=== PATIENT | female | born 1975 | race Caucasian/White ===

== ENCOUNTER → 2017-01-18 | Outpatient (CLI) | payer OTHER | LOC: MW.LAB 08:50 | PROVIDERS: ATTEND Obstetrics & Gynecology | DX: Z13.89 Encounter for screening for other disorder (principal) | CPT/HCPCS: 36415; 87340 ==

== ENCOUNTER → 2017-01-27 | Outpatient (CLI) | payer OTHER ==
[~2017-01-27] MED LIST: Iopamidol 612 MG/ML 30 ML SDV IUTERINE STA
--- NOTE | 2017-01-27 11:21 | CR ---
EXAMINATION: Hysterosalpingogram. HISTORY: Infertility. Evaluate for tubal patency. PROCEDURE/FINDINGS: Written informed consent was obtained from the patient. Perineum was prepped wit h Betadine and after placement of vaginal speculum, the cervix was prepped with Betadine. The cervi mounika os is difficult to identify, due to abnormal appearance of the cervix. A 5 Kyrgyz catheter was p laced and after inflation of the balloon, 18 cc of contrast was injected until cornual regions are f illed and multiple views of the pelvis are obtained. The uterine cavity is normal in configuration. No suspicious filling defects are seen. The left lobe and tube is patent and demonstrates free spillage. The right fallopian tube is identif ied to at least the infundibulum. Definite spillage from the right fallopian tube is not identified, however contrast more easily passed to the left is side. IMPRESSION: 1. Patent left fallopian tube. 2. The right fallopian tube is patent to at least the infundibulum. 3. The cervical os was difficult to identify due to an irregular appearance of the cervix. Correlate clinically.
--- NOTE | 2017-01-27 14:45 | MY ---
EXAMINATION: Bilateral digital mammography utilizing CAD. HISTORY: Screening exam. Baseline. FINDINGS: Bilateral heterogeneously dense breast tissue. No suspicious calcifications, masses or a rchitectural distortions. No pathologic appearing lymph nodes, no abnormal skin thickening or nipp le inversion. CAD highlighted regions appear normal at this time. IMPRESSION: BI-RADS category I - negative mammogram. Continued screening according to ACR-ACS gu idelines suggested. THE FALSE-NEGATIVE RATE OF MAMMOGRAM IS APPROXIMATELY 10%. MANAGEMENT OF A PALPABLE ABNORMALITY MUST BE BASED UPON CLINICAL GROUNDS. SENSITIVITY FOR DETECTION OF ABNORMALITIES IN DENSE BREASTS IS LOW. NOTE: A letter will be sent to the patient regarding findings. [facility] -- [place] [phone] - FAX [phone]
== END ==
LOC: MW.MAM 09:20
PROVIDERS: ATTEND Obstetrics & Gynecology
DX: Z12.31 Encounter for screening mammogram for malignant neoplasm of breast (principal); N97.9 Female infertility, unspecified
CPT/HCPCS: 58340; 74740; G0202; Q9967

== ENCOUNTER 2018-12-12 07:20 | Inpatient (IN) | payer OTHER ==
[2018-12-12] MEDS ORDERED: Lidocaine 1% 50 ML MDV INJECT PRN (07:39)
[2018-12-12] MEDS ORDERED: Carboprost Tromethamine 250 MCG/1 ML Amp IM PRN (07:39)
[2018-12-12] MEDS ORDERED: Tranexamic Acid 1,000 MG in Sodium Chloride 0.9% 100 ML IV PRN (07:39)
[2018-12-12] MEDS ORDERED: Ondansetron 4 MG/2 ML SDV IV PRN (07:39)
[2018-12-12] MEDS ORDERED: Water For Irrigation,Sterile 1,000 ML Container IRR PRN (07:39)
[2018-12-12] MEDS ORDERED: Methylergonovine 0.2 MG/1 ML Amp IM PRN (07:39)
[2018-12-12] MEDS ORDERED: Sodium Chloride 0.9% 10 ML Syringe FLUSH PRN (07:39)
[2018-12-12] MEDS ORDERED: Sodium Chloride 0.9% 10 ML SDV IV PRN (07:39)
[2018-12-12] MEDS ORDERED: Sodium Chloride 0.9% 2.5 ML Syringe FLUSH PRN (07:39)
[2018-12-12] MEDS ORDERED: Nalbuphine 10 MG/1 ML Vial IVPUSH PRN (07:39)
[2018-12-12] MEDS ORDERED: Misoprostol 200 MCG Tab PO PRN (07:39)
[2018-12-12] MEDS ORDERED: Oxytocin/0.9 % Sodium Chloride 30 UNIT/500 ML BAG IV SCH ×2 (07:45→20:45)
[2018-12-12] MEDS: Butorphanol 1 MG/ML SDV IVPUSH PRN ×2 (20:51→22:53)
[2018-12-12] MEDS: Lactated Ringers 1,000 ML IV SCH (20:52)
[2018-12-12] MEDS ORDERED: fentaNYL 100 MCG/2 ML SDV ONE (23:55)
[2018-12-12] MEDS ORDERED: Bupivacaine 0.25% 10 ML SDV ONE (23:55)
[2018-12-12] MEDS ORDERED: Lidocaine HCl/EPINEPHrine 5 ML IJ ONE (23:55)
[2018-12-13] MEDS: Lactated Ringers 1,000 ML IV SCH ×2 (00:25→05:58)
--- NOTE | 2018-12-13 01:01 | PCM.PREANE ---
Preanesthetic Assessment - Anesthesia/Transfusion/Family Hx Anesthesia History: No Prior Anesthesia Transfusion History: No Prior Transfusion(s) - Review of Systems General: No Symptoms Pulmonary: No Symptoms Cardiovascular: No Symptoms Gastrointestinal: No Symptoms Neurological: No Symptoms Other: Reports: None - Physical Assessment Pulse: 86 O2 Sat by Pulse Oximetry: 98 Height: 1.65 m Weight: 86.636 kg ASA Class: 2E Mental Status: Alert & Oriented x3 Dentition: Reports: Normal Dentition ROM/Head Extension: Full Lungs: Clear to Auscultation, Normal Respiratory Effort Cardiovascular: Regular Rate, Regular Rhythm - Lab Values: Laboratory Last Values WBC 9.04 K/uL (4.0-11.0) 12/12/18 08:05 RBC 3.85 M/uL (4.30-5.90) L 12/12/18 08:05 Hgb 10.6 g/dL (12.0-16.0) L 12/12/18 08:05 Hct 32.4 % (36.0-46.0) L 12/12/18 08:05 MCV 84.2 fL (80.0-98.0) 12/12/18 08:05 MCH 27.5 pg (27.0-32.0) 12/12/18 08:05 MCHC 32.7 g/dL (31.0-37.0) 12/12/18 08:05 RDW Std Deviation 46.1 fl (28.0-62.0) 12/12/18 08:05 RDW Coeff of Erma 15 % (11.0-15.0) 12/12/18 08:05 Plt Count 238 K/uL (150-400) 12/12/18 08:05 MPV 10.50 fL (7.40-12.00) 12/12/18 08:05 Nucleated RBC % 0.0 /100WBC 12/12/18 08:05 Nucleated RBCs # 0 K/uL 12/12/18 08:05 Blood Type A POSITIVE 12/12/18 08:05 Antibody Screen NEGATIVE 12/12/18 08:05 - Allergies Allergies/Adverse Reactions: Allergies Allergy/AdvReac Type Severity Reaction Status Date / Time No Known Allergies Allergy Verified 12/12/18 23:51 - Acknowledgements Anesthesia Type Planned: Epidural Pt an Appropriate Candidate for the Planned Anesthesia: Yes Alternatives and Risks of Anesthesia Discussed w Pt/Guardian: Yes Pt/Guardian Understands and Agrees with Anesthesia Plan: Yes PreAnesthesia Questionnaire HEENT History: Reports: Impaired Vision Other HEENT History: patient wears glasses DIRECTOR OF EDUCATION AND TRAINING History: Reports: - Infectious Disease History Infectious Disease History: Reports: Chicken Pox, Hepatitis B - Past Surgical History HEENT Surgical History: Reports: None - SUBSTANCE USE Smoking Status *Q: Never Smoker Recreational Drug Use History: No - CURRENT (IN HOUSE) MEDS Current Meds: Current Medications Butorphanol Tartrate (Stadol) 1 mg IVPUSH Q1H PRN PRN Reason: Pain Last Admin: 12/12/18 22:53 Dose: 1 mg Carboprost Tromethamine (Hemabate Ds) 250 mcg IM ASDIRECTED PRN PRN Reason: Post Hemorrhage Lactated Ringer's (Ringers, Lactated) 1,000 mls @ 150 mls/hr IV ASDIRECTED AYLEEN Last Admin: 12/13/18 00:25 Dose: 150 mls/hr Oxytocin/Sodium Chloride (Oxytocin 30 Unit/500 Ml-Ns) 30 unit in 500 mls @ 500 mls/hr IV TITRATE AYLEEN Tranexamic Acid 1,000 mg/ (Sodium Chloride) 110 mls @ 660 mls/hr IV ONETIME PRN PRN Reason: Bleeding Oxytocin/Sodium Chloride (Oxytocin 30 Unit/500 Ml-Ns) 30 unit in 500 mls @ 2 mls/hr IV TITRATE AYLEEN; Protocol Last Infusion: 12/12/18 23:02 Dose: 8 munits/min, 8 mls/hr Lidocaine HCl (Xylocaine 1%) 50 ml INJECT ONETIME PRN PRN Reason: Laceration repair Methylergonovine Maleate (Methergine) 0.2 mg IM ASDIRECTED PRN PRN Reason: Post Hemorrhage Misoprostol (Cytotec) 200 mcg PO ONETIME PRN PRN Reason: Post Hemorrhage Nalbuphine HCl (Nubain) 10 mg IVPUSH Q1H PRN PRN Reason: Pain (severe 7-10) Ondansetron HCl (Zofran) 4 mg IV Q6H PRN PRN Reason: Nausea/Vomiting Sodium Chloride (Saline Flush) 10 ml FLUSH ASDIRECTED PRN PRN Reason: Keep Vein Open Sodium Chloride (Saline Flush) 2.5 ml FLUSH ASDIRECTED PRN PRN Reason: Keep Vein Open Sodium Chloride (Normal Saline) 10 ml IV ASDIRECTED PRN PRN Reason: IV Use Sterile Water (Sterile Water For Irrigation) 1,000 ml IRR ASDIRECTED PRN PRN Reason: delivery Discontinued Medications Bupivacaine HCl (Sensorcaine-Mpf 0.25%) Confirm Administered Dose 10 ml .ROUTE .STK-MED ONE Stop: 12/12/18 23:56 Fentanyl (Sublimaze) Confirm Administered Dose 100 mcg .ROUTE .STK-MED ONE Stop: 12/12/18 23:56 Fentanyl/Bupivacaine HCl (Psrmzvuj-Loklf-Fl 2 Mcg/Ml-0.125%) Confirm Administered Dose 100 mls @ as directed .ROUTE .STK-MED ONE Stop: 12/12/18 23:56 Lidocaine/Epinephrine (Lidocaine 1.5%-Epi 1:200,000) Confirm Administered Dose 5 ml IJ .STK-MED ONE Stop: 12/12/18 23:56
[2018-12-13] MEDS ORDERED: ePHEDrine 50 MG/ML SDV ONE (01:24)
[2018-12-13] MEDS ORDERED: Bupivacaine 0.5% 10 ML SDV ONE (05:42)
[2018-12-13] MEDS ORDERED: Lidocaine 2% 5 ML SDV ONE ×2 (05:43→06:10)
[2018-12-13] MEDS ORDERED: ceFAZolin/Dextrose,Iso-Osmotic 2 GM/50 ML Duplex Bag IV ONE (06:04)
[2018-12-13] MEDS ORDERED: diphenhydrAMINE 50 MG/ML SDV IVPUSH PRN ×2 (07:01→07:19)
[2018-12-13] MEDS ORDERED: fentaNYL 100 MCG/2 ML SDV IVPUSH PRN (07:01)
[2018-12-13] MEDS ORDERED: Nalbuphine 10 MG/1 ML Vial IVPUSH PRN (07:01)
[2018-12-13] MEDS ORDERED: Ondansetron 4 MG/2 ML SDV IVPUSH PRN ×2 (07:01→07:19)
[2018-12-13] MEDS ORDERED: Acetaminophen/oxyCODONE 325-5 MG Tab PO PRN ×2 (07:01→07:19)
[2018-12-13] MEDS ORDERED: Naloxone 0.4 MG/ML Syringe IVPUSH PRN (07:01)
[2018-12-13] MEDS ORDERED: Bisacodyl 10 MG Supp RECTAL PRN (07:19)
[2018-12-13] MEDS ORDERED: Lanolin 100% Cream 7 GM Tube TOP PRN (07:19)
--- NOTE | 2018-12-13 07:22 | PCM.OPNOTE ---
<Sondra Colunga - Last Filed: 12/13/18 07:17> - General Post-Op/Procedure Note Date of Surgery/Procedure: 12/13/18 Operative Procedure(s): Primary section Findings: Liveborn male infant with scores of 9/9 who weighed in at 4220 gm. Pre Op Diagnosis: 39.2 wga IUP, spontaneous labor, arrest of descent, Hep B carrier Post-Op Diagnosis: same Anesthesia Technique: Epidural Primary Surgeon: Sondra Evans Secondary Surgeon: Sondra Colunga (MS4) Anesthesia Provider: Damon Cuello Pathology: none Fluid Replacement, Intraop: 1,000 Output, Urine Amount: 200 EBL in mLs: 700 Complications: none known Condition: Good Free Text/Narrative:: Amilcar is a 43 year old who was taken to deliver via section due to arrest of descent. A liveborn male infant was born at 4220 gm with scores of 9/9. Both mother and baby were stable throughout the procedure. Arterial, venous, and cord blood gasses were sent. <Sondra Evans - Last Filed: 12/13/18 08:15> - General Post-Op/Procedure Note Free Text/Narrative:: Intake & Output 12/12/18 12/13/18 12/13/18 22:59 06:59 14:59 Intake Total 2200 Output Total 200 Balance 1999 [id number] Dictration
[2018-12-13] MEDS ORDERED: Lactated Ringers 1,000 ML IV SCH (07:30)
[2018-12-13] MEDS: Ketorolac 30 MG/ML SDV IVPUSH SCH ×3 (07:41→19:38)
--- NOTE | 2018-12-13 08:36 | PCM48HPAN ---
Post Anesthesia Note - EVALUATION WITHIN 48HRS OF ANESTHETIC Patient Participated in Evaluation: Yes Respiratory Function Stable: Yes Airway Patent: Yes Cardiovascular Function Stable: Yes Hydration Status Stable: Yes Pain Control Satisfactory: Yes Mental Status Recovered: Yes Pulse Rate: 86 SaO2: 98 Resp Rate: 22 Blood Pressure: 103/65 Pulse Rate: 86
[2018-12-13] MEDS: Docusate Sodium 100 MG Cap PO SCH (13:05)
--- NOTE | 2018-12-13 15:16 | OR ---
SURGEON: Sondra Evans M.D. DATE OF PROCEDURE: 12/13/2018 PREOPERATIVE DIAGNOSES: 1. 39-2/7 weeks' intrauterine . 2. Active labor. 3. Arrest of descent. 4. Hepatitis B carrier. POSTOPERATIVE DIAGNOSES: 1. 39-2/7 weeks' intrauterine . 2. Active labor. 3. Arrest of descent. 4. Hepatitis B carrier. PROCEDURE: Primary low transverse section. SONG LYRICIST: Giovanni Colunga MS4. ANESTHESIA: Epidural. ESTIMATED BLOOD LOSS: 700 mL. FLUIDS: 1000 mL in OR of crystalloid. FINDINGS: Viable male, scores 9 at 1 minute and 9 at 5 minute, weight of 4220 g. At delivery, intact placenta, 3-vessel cord, normal-appearing pelvis. DISPOSITION: The patient to PACU, to nursery, stable condition. PROCEDURE DETAILS: Jarred is a 43-year-old primigravida at 39-2/7 weeks' gestational age, who presented yesterday with active labor, spontaneous rupture of membranes. Clear fluid was noted. The patient was monitored throughout the day, made continuous slow cervical change until yesterday evening. At that time, she made minimal change after 7 cm and therefore was initiated on Pitocin augmentation. She did not progress to complete over the next few hours. heart tones remained category 1. She began pushing efforts and the station was still at a 0 station. Despite pushing efforts for 2 hours, there was no change in station. Did not come below 0 station. It was known that the fetus is large for gestational age fetus and measuring approximately 4100 g on ultrasound. Therefore, at this time, discussed with patient that given her adequate pushing efforts with no change past the 0 station, it was felt that the fetus is simply too large for her pelvis. She voiced her understanding. Option of proceeding with delivery was discussed with them. They would like to proceed in this manner. Risks of the procedure have been discussed including infection; bleeding; possible trauma to the surrounding bowel, bladder, ureters; in case of excessive blood loss, need for blood product transfusion; in rare lifesaving circumstances, need for hysterectomy; risk for thromboembolic event; and risk of anesthesia. Proper consent obtained. The patient was taken to the operating room where she underwent a bolus of her epidural, was placed in the dorsal supine position with leftward tilt. SCDs to lower extremities, Christensen to gravity, and was prepped and draped in the usual sterile fashion. Received Ancef prophylactically. Time-out was performed. After being prepped and draped in usual sterile fashion, anesthesia was tested and found to be adequate. A Pfannenstiel skin incision was created, carried down to level of the rectus fascia, was incised in midline, lateralized on either side. The superior aspect of the fascia was tented upward, dissected sharply and bluntly away from underlying muscles. Similar aspect was performed on the inferior aspect of the fascia. Rectus muscles were . Peritoneum was entered sharply. Rectus muscle and peritoneum were lateralized bluntly. Uterine position was palpated. Self-retaining retractor now was gently placed. Bladder flap was created and sharply and bluntly mobilized away from lower uterine segment. Low transverse hysterotomy was now performed. Uterine cavity was entered with blunt end of the scalpel. Hysterotomy was lateralized bluntly. The 's head was flexed and delivered from the pelvis. The head was delivered followed by shoulders and remainder of the body without difficulty. Nuchal cord x1 was reduced manually. The 's oropharynx and nares bulb suctioned. was vigorous and crying. The cord was clamped x2 and cut. was handed off to attending nursing staff. Cord arterial, cord venous, cord blood samples obtained. The placenta was now delivered. The uterine cavity was cleared of all clot and debris. Hysterotomy repaired using 0 Vicryl in continuous running locked fashion followed by re-imbricating layer. Areas of oozing along the midline were plicated with 3 [id number] sutures. Any serosal oozing was cauterized. Posterior aspect of the uterus was inspected, no defects or hematomas were found be forming. The region was well irrigated, suction dried. Uterus returned to abdominal cavity. Colonic gutters were cleared of all clot and debris, well irrigated, suction dried. Hysterotomy once again inspected and found to be hemostatic. Self-retaining tractor now gently removed. Bladder blade was placed. Hysterotomy once again inspected and found to be hemostatic except for a few areas of serosal oozing along the bladder flap. This was cauterized and hemostasis thereafter evident. Bladder blade was removed. Peritoneum, rectus muscles now reapproximated with inverted mattress suture technique. Anterior aspect of the muscle, posterior aspect of the fascia closely inspected. Any areas of oozing were cauterized. The rectus fascia was reapproximated using 0 Vicryl in continuous running fashion beginning laterally on either side and meeting in the midline. Subcutaneous tissues were irrigated, suction dried. Any areas of oozing were cauterized. The skin edges were reapproximated using 3-0 Vicryl in subcuticular fashion on Oz needle. Half-inch Steri-Strips and Mastisol placed. Uterus remained firm. Sponge, instrument, and needle counts correct x2. The patient tolerated the procedure well. She will go to PACU in stable condition, infant to nursery. BRITANY / ZURDO /[id number]
[2018-12-13] MEDS ORDERED: Ketorolac 30 MG/ML SDV ONE (19:31)
--- NOTE | 2018-12-13 21:51 | PCM48HPAN ---
Post Anesthesia Note - EVALUATION WITHIN 48HRS OF ANESTHETIC Vital Signs in Normal Range: Yes Patient Participated in Evaluation: Yes Respiratory Function Stable: Yes Airway Patent: Yes Cardiovascular Function Stable: Yes Hydration Status Stable: Yes Pain Control Satisfactory: Yes Nausea and Vomiting Control Satisfactory: Yes Mental Status Recovered: Yes Pulse Rate: 86 Resp Rate: 18 Blood Pressure: 103/65 Pulse Rate: 86
[2018-12-14] MEDS: Ketorolac 30 MG/ML SDV IVPUSH SCH ×2 (01:33→08:11)
--- NOTE | 2018-12-14 08:44 | PCM.PNPP ---
- General Info Date of Service: 12/14/18 Functional Status: Reports: Pain Controlled, Tolerating Diet, Ambulating, Urinating - Review of Systems General: Reports: Fatigue. Denies: Fever, Weakness Pulmonary: Denies: Shortness of Breath Cardiovascular: Denies: Chest Pain, Palpitations, Lightheadedness Gastrointestinal: Reports: Abdominal Pain (incisional, controlled overall). Denies: Nausea, Vomiting Genitourinary: Denies: Flank Pain Musculoskeletal: Reports: No Symptoms Skin: Reports: No Symptoms Neurological: Reports: No Symptoms - General Info Date of Service: 12/14/18 - Patient Data Vital Signs - Most Recent: Last Vital Signs Temp 37.1 C 12/13/18 23:50 Pulse 93 12/14/18 06:00 Resp 15 12/14/18 06:00 BP 109/56 L 12/14/18 05:00 Pulse Ox 95 12/14/18 06:00 Weight - Most Recent: 86.636 kg I&O - Last 24 Hours: Intake & Output 12/13/18 12/14/18 12/14/18 22:59 06:59 14:59 Output Total 750 1000 Balance -750 -1000 Lab Results - Last 24 Hours: Laboratory Results - last 24 hr 12/14/18 Range/Units 04:50 Hgb 7.0 L (12.0-16.0) g/dL Hct 21.6 L (36.0-46.0) % Med Orders - Current: Current Medications Bisacodyl (Dulcolax) 10 mg RECTAL ONETIME PRN PRN Reason: Constipation Butorphanol Tartrate (Stadol) 1 mg IVPUSH Q1H PRN PRN Reason: Pain Last Admin: 12/12/18 22:53 Dose: 1 mg Carboprost Tromethamine (Hemabate Ds) 250 mcg IM ASDIRECTED PRN PRN Reason: Post Hemorrhage Diphenhydramine HCl (Benadryl) 25 mg IVPUSH Q6H PRN PRN Reason: Itching or Nausea Docusate Sodium (Colace) 100 mg PO BID AYLEEN Last Admin: 12/13/18 13:05 Dose: Not Given Emollient Ointment (Lansinoh Hpa) 0 gm TOP ASDIRECTED PRN PRN Reason: Sore Nipples Fentanyl (Sublimaze) 50 mcg IVPUSH Q1H PRN PRN Reason: Pain (severe 7-10) Lactated Ringer's (Ringers, Lactated) 1,000 mls @ 150 mls/hr IV ASDIRECTED [facility] Last Admin: 12/13/18 05:58 Dose: 150 mls/hr Oxytocin/Sodium Chloride (Oxytocin 30 Unit/500 Ml-Ns) 30 unit in 500 mls @ 500 mls/hr IV TITRATE AYLEEN Tranexamic Acid 1,000 mg/ (Sodium Chloride) 110 mls @ 660 mls/hr IV ONETIME PRN PRN Reason: Bleeding Oxytocin/Sodium Chloride (Oxytocin 30 Unit/500 Ml-Ns) 30 unit in 500 mls @ 2 mls/hr IV TITRATE AYLEEN; Protocol Last Infusion: 12/12/18 23:02 Dose: 8 munits/min, 8 mls/hr Lactated Ringer's (Ringers, Lactated) 1,000 mls @ 125 mls/hr IV ASDIRECTED [facility] Ibuprofen (Motrin) 800 mg PO Q8H PRN PRN Reason: mild pain or fever Lidocaine HCl (Xylocaine 1%) 50 ml INJECT ONETIME PRN PRN Reason: Laceration repair Methylergonovine Maleate (Methergine) 0.2 mg IM ASDIRECTED PRN PRN Reason: Post Hemorrhage Misoprostol (Cytotec) 200 mcg PO ONETIME PRN PRN Reason: Post Hemorrhage Nalbuphine HCl (Nubain) 10 mg IVPUSH Q1H PRN PRN Reason: Pain (severe 7-10) Nalbuphine HCl (Nubain) 5 mg IVPUSH ASDIRECTED PRN PRN Reason: Itching Ondansetron HCl (Zofran) 4 mg IV Q6H PRN PRN Reason: Nausea/Vomiting Ondansetron HCl (Zofran) 4 mg IVPUSH Q6H PRN PRN Reason: Nausea Ondansetron HCl (Zofran) 4 mg IVPUSH Q4H PRN PRN Reason: Nausea/Vomiting Oxycodone/Acetaminophen (Percocet 325-5 Mg) 2 tab PO Q6H PRN PRN Reason: Pain (moderate 4-6) Oxycodone/Acetaminophen (Percocet 325-5 Mg) 1 tab PO Q4H PRN PRN Reason: Pain (moderate 4-6) Oxycodone/Acetaminophen (Percocet 325-5 Mg) 2 tab PO Q4H PRN PRN Reason: Pain (moderate 4-6) Sodium Chloride (Saline Flush) 10 ml FLUSH ASDIRECTED PRN PRN Reason: Keep Vein Open Sodium Chloride (Saline Flush) 2.5 ml FLUSH ASDIRECTED PRN PRN Reason: Keep Vein Open Sodium Chloride (Normal Saline) 10 ml IV ASDIRECTED PRN PRN Reason: IV Use Sterile Water (Sterile Water For Irrigation) 1,000 ml IRR ASDIRECTED PRN PRN Reason: delivery Discontinued Medications Bupivacaine HCl (Sensorcaine-Mpf 0.25%) Confirm Administered Dose 10 ml .ROUTE .STK-MED ONE Stop: 12/12/18 23:56 Last Admin: 12/13/18 13:04 Dose: Not Given Bupivacaine HCl (Sensorcaine-Mpf 0.5%) Confirm Administered Dose 10 ml .ROUTE .STK-MED ONE Stop: 12/13/18 05:43 Last Admin: 12/13/18 13:05 Dose: Not Given Cefazolin Sodium/Dextrose (Ancef) Confirm Administered Dose 2 gm IV .STK-MED ONE Stop: 12/13/18 06:05 Last Admin: 12/13/18 13:05 Dose: Not Given Diphenhydramine HCl (Benadryl) 25 mg IVPUSH Q4H PRN PRN Reason: Itching Stop: 12/14/18 07:02 Ephedrine Sulfate (Ephedrine Sulfate) Confirm Administered Dose 50 mg .ROUTE .STK-MED ONE Stop: 12/13/18 01:25 Last Admin: 12/13/18 13:05 Dose: Not Given Fentanyl (Sublimaze) Confirm Administered Dose 100 mcg .ROUTE .STK-MED ONE Stop: 12/12/18 23:56 Last Admin: 12/13/18 13:04 Dose: Not Given Fentanyl/Bupivacaine HCl (Uuktlgko-Bmsya-Zb 2 Mcg/Ml-0.125%) Confirm Administered Dose 100 mls @ as directed .ROUTE .STK-MED ONE Stop: 12/12/18 23:56 Last Admin: 12/13/18 13:04 Dose: Not Given Ketorolac Tromethamine (Toradol) 30 mg IVPUSH Q6H AYLEEN Stop: 12/14/18 07:31 Last Admin: 12/14/18 08:11 Dose: 30 mg Ketorolac Tromethamine (Toradol) Confirm Administered Dose 30 mg .ROUTE .STK- MED ONE Stop: 12/13/18 19:32 Last Admin: 12/14/18 04:06 Dose: Not Given Lidocaine (Xylocaine-Mpf 2%) Confirm Administered Dose 5 ml .ROUTE .STK-MED ONE Stop: 12/13/18 05:44 Last Admin: 12/13/18 13:05 Dose: Not Given Lidocaine (Xylocaine-Mpf 2%) Confirm Administered Dose 5 ml .ROUTE .STK-MED ONE Stop: 12/13/18 06:11 Last Admin: 12/13/18 13:05 Dose: Not Given Lidocaine/Epinephrine (Lidocaine 1.5%-Epi 1:200,000) Confirm Administered Dose 5 ml IJ .STK-MED ONE Stop: 12/12/18 23:56 Last Admin: 12/13/18 13:04 Dose: Not Given Naloxone HCl (Narcan) 0.1 mg IVPUSH ONETIME PRN PRN Reason: Respiratory Depression Stop: 12/14/18 07:02 - Infant Interaction Support Person: - Recovery Exam Fundal Tone: Firm Fundal Level: At Umbilicus Fundal Placement: Midline Lochia Amount: Small Lochia Color: Rubra/Red Perineum Description: Intact, Minimal Bruising/Swelling Episiotomy/Laceration: None Bladder Status: Indwelling Catheter in Place Urinary Elimination: Indwelling Catheter - Exam General: Alert, Oriented Lungs: Normal Respiratory Effort Cardiovascular: Regular Rate, Regular Rhythm GI/Abdominal Exam: Normal Bowel Sounds, Soft, No Distention, Tender ( appropriately along incisional region). No: Guarding Extremities: Pedal Edema (1+). No: Myra's Sign Skin: Warm, Dry, Intact Wound/Incisions: Healing Well, No Drainage. No: Erythema Neurological: No New Focal Deficit - Problem List & Annotations (1) Arrest of descent, delivered, current hospitalization SNOMED Code(s): 50268590 Code(s): O62.1 - SECONDARY UTERINE INERTIA Status: Acute Current Visit: Yes - Problem List Review Problem List Initiated/Reviewed/Updated: Yes - My Orders Last 24 Hours: My Active Orders 12/13/18 09:00 Docusate Sodium [Colace] 100 mg PO BID 03/26/19 Lunch Regular Diet [DIET] - Assessment Assessment:: POD 1 status post Primary LTCS Anemia, asymptomatic - Plan Plan:: Continue postoperative cares. Ambulate halls today. May shower.
[2018-12-14] MEDS: Docusate Sodium 100 MG Cap PO SCH ×3 (13:28→22:47)
[2018-12-14] MEDS: Ibuprofen 800 MG Tab PO PRN (18:56)
[2018-12-15] MEDS: Ibuprofen 800 MG Tab PO PRN ×2 (02:44→14:00)
[2018-12-15] MEDS: Acetaminophen/oxyCODONE 325-5 MG Tab PO PRN ×2 (02:44→09:07)
--- NOTE | 2018-12-15 07:50 | PCM.PNPP ---
<Sondra Colunga - Last Filed: 12/15/18 07:45> - General Info Date of Service: 12/15/18 Admission Dx/Problem (Free Text): 39.1 wga IUP, s/p primary section Subjective Update: Amilcar is POD day 2 for a primary for arrest of descent. She states that she feels comfortable being discharged to home today. She has decreased her oral pain medications and is having some breakthrough pain because of it. Overall, her pain is manageable she states. She is urinating, eating, and ambulating without issue. Functional Status: Reports: Pain Controlled, Tolerating Diet, Ambulating, Urinating - Review of Systems General: Reports: No Symptoms Pulmonary: Reports: No Symptoms Cardiovascular: Reports: No Symptoms Gastrointestinal: Reports: No Symptoms Genitourinary: Reports: No Symptoms Musculoskeletal: Reports: No Symptoms Skin: Reports: No Symptoms Neurological: Reports: No Symptoms Psychiatric: Reports: No Symptoms - General Info Date of Service: 12/15/18 - Patient Data Vital Signs - Most Recent: Last Vital Signs Temp 97.6 F 12/15/18 04:55 Pulse 77 12/15/18 04:55 Resp 16 12/15/18 04:55 BP 109/54 L 12/15/18 04:55 Pulse Ox 98 12/15/18 04:55 Weight - Most Recent: 86.636 kg Med Orders - Current: Current Medications Bisacodyl (Dulcolax) 10 mg RECTAL ONETIME PRN PRN Reason: Constipation Butorphanol Tartrate (Stadol) 1 mg IVPUSH Q1H PRN PRN Reason: Pain Last Admin: 12/12/18 22:53 Dose: 1 mg Carboprost Tromethamine (Hemabate Ds) 250 mcg IM ASDIRECTED PRN PRN Reason: Post Hemorrhage Diphenhydramine HCl (Benadryl) 25 mg IVPUSH Q6H PRN PRN Reason: Itching or Nausea Docusate Sodium (Colace) 100 mg PO BID AYLEEN Last Admin: 12/14/18 22:47 Dose: Not Given Emollient Ointment (Lansinoh Hpa) 0 gm TOP ASDIRECTED PRN PRN Reason: Sore Nipples Fentanyl (Sublimaze) 50 mcg IVPUSH Q1H PRN PRN Reason: Pain (severe 7-10) Lactated Ringer's (Ringers, Lactated) 1,000 mls @ 150 mls/hr IV ASDIRECTED AYLEEN Last Admin: 12/13/18 05:58 Dose: 150 mls/hr Oxytocin/Sodium Chloride (Oxytocin 30 Unit/500 Ml-Ns) 30 unit in 500 mls @ 500 mls/hr IV TITRATE AYLEEN Tranexamic Acid 1,000 mg/ (Sodium Chloride) 110 mls @ 660 mls/hr IV ONETIME PRN PRN Reason: Bleeding Oxytocin/Sodium Chloride (Oxytocin 30 Unit/500 Ml-Ns) 30 unit in 500 mls @ 2 mls/hr IV TITRATE AYLEEN; Protocol Last Infusion: 12/12/18 23:02 Dose: 8 munits/min, 8 mls/hr Lactated Ringer's (Ringers, Lactated) 1,000 mls @ 125 mls/hr IV ASDIRECTED [facility] Ibuprofen (Motrin) 800 mg PO Q8H PRN PRN Reason: mild pain or fever Last Admin: 12/15/18 02:44 Dose: 800 mg Lidocaine HCl (Xylocaine 1%) 50 ml INJECT ONETIME PRN PRN Reason: Laceration repair Methylergonovine Maleate (Methergine) 0.2 mg IM ASDIRECTED PRN PRN Reason: Post Hemorrhage Misoprostol (Cytotec) 200 mcg PO ONETIME PRN PRN Reason: Post Hemorrhage Nalbuphine HCl (Nubain) 10 mg IVPUSH Q1H PRN PRN Reason: Pain (severe 7-10) Nalbuphine HCl (Nubain) 5 mg IVPUSH ASDIRECTED PRN PRN Reason: Itching Ondansetron HCl (Zofran) 4 mg IV Q6H PRN PRN Reason: Nausea/Vomiting Ondansetron HCl (Zofran) 4 mg IVPUSH Q6H PRN PRN Reason: Nausea Ondansetron HCl (Zofran) 4 mg IVPUSH Q4H PRN PRN Reason: Nausea/Vomiting Oxycodone/Acetaminophen (Percocet 325-5 Mg) 2 tab PO Q6H PRN PRN Reason: Pain (moderate 4-6) Oxycodone/Acetaminophen (Percocet 325-5 Mg) 1 tab PO Q4H PRN PRN Reason: Pain (moderate 4-6) Last Admin: 12/15/18 02:44 Dose: 1 tab Oxycodone/Acetaminophen (Percocet 325-5 Mg) 2 tab PO Q4H PRN PRN Reason: Pain (moderate 4-6) Last Admin: 12/14/18 13:29 Dose: 2 tab Sodium Chloride (Saline Flush) 10 ml FLUSH ASDIRECTED PRN PRN Reason: Keep Vein Open Sodium Chloride (Saline Flush) 2.5 ml FLUSH ASDIRECTED PRN PRN Reason: Keep Vein Open Sodium Chloride (Normal Saline) 10 ml IV ASDIRECTED PRN PRN Reason: IV Use Sterile Water (Sterile Water For Irrigation) 1,000 ml IRR ASDIRECTED PRN PRN Reason: delivery Discontinued Medications Bupivacaine HCl (Sensorcaine-Mpf 0.25%) Confirm Administered Dose 10 ml .ROUTE .STK-MED ONE Stop: 12/12/18 23:56 Last Admin: 12/13/18 13:04 Dose: Not Given Bupivacaine HCl (Sensorcaine-Mpf 0.5%) Confirm Administered Dose 10 ml .ROUTE .STK-MED ONE Stop: 12/13/18 05:43 Last Admin: 12/13/18 13:05 Dose: Not Given Cefazolin Sodium/Dextrose (Ancef) Confirm Administered Dose 2 gm IV .STK-MED ONE Stop: 12/13/18 06:05 Last Admin: 12/13/18 13:05 Dose: Not Given Diphenhydramine HCl (Benadryl) 25 mg IVPUSH Q4H PRN PRN Reason: Itching Stop: 12/14/18 07:02 Ephedrine Sulfate (Ephedrine Sulfate) Confirm Administered Dose 50 mg .ROUTE .STK-MED ONE Stop: 12/13/18 01:25 Last Admin: 12/13/18 13:05 Dose: Not Given Fentanyl (Sublimaze) Confirm Administered Dose 100 mcg .ROUTE .STK-MED ONE Stop: 12/12/18 23:56 Last Admin: 12/13/18 13:04 Dose: Not Given Fentanyl/Bupivacaine HCl (Xtycxefx-Dvyth-Gd 2 Mcg/Ml-0.125%) Confirm Administered Dose 100 mls @ as directed .ROUTE .STK-MED ONE Stop: 12/12/18 23:56 Last Admin: 12/13/18 13:04 Dose: Not Given Ketorolac Tromethamine (Toradol) 30 mg IVPUSH Q6H AYLEEN Stop: 12/14/18 07:31 Last Admin: 12/14/18 08:11 Dose: 30 mg Ketorolac Tromethamine (Toradol) Confirm Administered Dose 30 mg .ROUTE .STK- MED ONE Stop: 12/13/18 19:32 Last Admin: 12/14/18 04:06 Dose: Not Given Lidocaine (Xylocaine-Mpf 2%) Confirm Administered Dose 5 ml .ROUTE .STK-MED ONE Stop: 12/13/18 05:44 Last Admin: 12/13/18 13:05 Dose: Not Given Lidocaine (Xylocaine-Mpf 2%) Confirm Administered Dose 5 ml .ROUTE .STK-MED ONE Stop: 12/13/18 06:11 Last Admin: 12/13/18 13:05 Dose: Not Given Lidocaine/Epinephrine (Lidocaine 1.5%-Epi 1:200,000) Confirm Administered Dose 5 ml IJ .STK-MED ONE Stop: 12/12/18 23:56 Last Admin: 12/13/18 13:04 Dose: Not Given Naloxone HCl (Narcan) 0.1 mg IVPUSH ONETIME PRN PRN Reason: Respiratory Depression Stop: 12/14/18 07:02 - Infant Interaction Disposition, : [facility] to Nursery Interaction: Not Applicable Feeding: Attempted ; Nursed Fair/Poor Support Person: - Recovery Exam Fundal Tone: Firm Fundal Level: 1 Fingerbreadths Below Umbilicus Fundal Placement: Midline Lochia Amount: Scant Lochia Color: Rubra/Red Perineum Description: Intact, Minimal Bruising/Swelling Episiotomy/Laceration: None Bladder Status: Voiding Urinary Elimination: Voided - Exam General: Alert, Oriented HEENT: Pupils Equal, Pupils Reactive, EOMI, Mucous Membr. Moist/[place] Neck: Supple Lungs: Clear to Auscultation, Normal Respiratory Effort Cardiovascular: Regular Rate, Regular Rhythm GI/Abdominal Exam: Normal Bowel Sounds, Soft, Non-Tender, No Organomegaly, No Distention Extremities: Normal Inspection, Normal Range of Motion, Non-Tender, Pedal Edema (1+ bilaterally to ankles; decreasing) Skin: Warm, Dry, Intact Wound/Incisions: Healing Well Neurological: No New Focal Deficit Psy/Mental Status: Alert, Normal Affect, Normal Mood - Problem List & Annotations (1) Arrest of descent, delivered, current hospitalization SNOMED Code(s): 45485857 Code(s): O62.1 - SECONDARY UTERINE INERTIA Status: Acute Current Visit: Yes - Problem List Review Problem List Initiated/Reviewed/Updated: Yes - Assessment Assessment:: POD 2 status post Primary LTCS. Patient improving. Vital signs good and stable. Patient has anemia per labs but continues to be asymptomatic. - Plan Plan:: cares Pain control as needed Discharge to home today if continues to be stable/progress Consider iron supplementation for anemia <Sondra Evans - Last Filed: 12/15/18 09:05> - Patient Data Vital Signs - Most Recent: Last Vital Signs Temp 36.4 C 12/15/18 04:55 Pulse 77 12/15/18 04:55 Resp 16 12/15/18 04:55 BP 109/54 L 12/15/18 04:55 Pulse Ox 98 12/15/18 04:55 Med Orders - Current: Current Medications Bisacodyl (Dulcolax) 10 mg RECTAL ONETIME PRN PRN Reason: Constipation Butorphanol Tartrate (Stadol) 1 mg IVPUSH Q1H PRN PRN Reason: Pain Last Admin: 12/12/18 22:53 Dose: 1 mg Carboprost Tromethamine (Hemabate Ds) 250 mcg IM ASDIRECTED PRN PRN Reason: Post Hemorrhage Diphenhydramine HCl (Benadryl) 25 mg IVPUSH Q6H PRN PRN Reason: Itching or Nausea Docusate Sodium (Colace) 100 mg PO BID [facility] Last Admin: 12/14/18 22:47 Dose: Not Given Emollient Ointment (Lansinoh Hpa) 0 gm TOP ASDIRECTED PRN PRN Reason: Sore Nipples Fentanyl (Sublimaze) 50 mcg IVPUSH Q1H PRN PRN Reason: Pain (severe 7-10) Lactated Ringer's (Ringers, Lactated) 1,000 mls @ 150 mls/hr IV ASDIRECTED [facility] Last Admin: 12/13/18 05:58 Dose: 150 mls/hr Oxytocin/Sodium Chloride (Oxytocin 30 Unit/500 Ml-Ns) 30 unit in 500 mls @ 500 mls/hr IV TITRATE AYLEEN Tranexamic Acid 1,000 mg/ (Sodium Chloride) 110 mls @ 660 mls/hr IV ONETIME PRN PRN Reason: Bleeding Oxytocin/Sodium Chloride (Oxytocin 30 Unit/500 Ml-Ns) 30 unit in 500 mls @ 2 mls/hr IV TITRATE AYLEEN; Protocol Last Infusion: 12/12/18 23:02 Dose: 8 munits/min, 8 mls/hr Lactated Ringer's (Ringers, Lactated) 1,000 mls @ 125 mls/hr IV ASDIRECTED AYLEEN Ibuprofen (Motrin) 800 mg PO Q8H PRN PRN Reason: mild pain or fever Last Admin: 12/15/18 02:44 Dose: 800 mg Lidocaine HCl (Xylocaine 1%) 50 ml INJECT ONETIME PRN PRN Reason: Laceration repair Methylergonovine Maleate (Methergine) 0.2 mg IM ASDIRECTED PRN PRN Reason: Post Hemorrhage Misoprostol (Cytotec) 200 mcg PO ONETIME PRN PRN Reason: Post Hemorrhage Nalbuphine HCl (Nubain) 10 mg IVPUSH Q1H PRN PRN Reason: Pain (severe 7-10) Nalbuphine HCl (Nubain) 5 mg IVPUSH ASDIRECTED PRN PRN Reason: Itching Ondansetron HCl (Zofran) 4 mg IV Q6H PRN PRN Reason: Nausea/Vomiting Ondansetron HCl (Zofran) 4 mg IVPUSH Q6H PRN PRN Reason: Nausea Ondansetron HCl (Zofran) 4 mg IVPUSH Q4H PRN PRN Reason: Nausea/Vomiting Oxycodone/Acetaminophen (Percocet 325-5 Mg) 2 tab PO Q6H PRN PRN Reason: Pain (moderate 4-6) Oxycodone/Acetaminophen (Percocet 325-5 Mg) 1 tab PO Q4H PRN PRN Reason: Pain (moderate 4-6) Last Admin: 12/15/18 02:44 Dose: 1 tab Oxycodone/Acetaminophen (Percocet 325-5 Mg) 2 tab PO Q4H PRN PRN Reason: Pain (moderate 4-6) Last Admin: 12/14/18 13:29 Dose: 2 tab Sodium Chloride (Saline Flush) 10 ml FLUSH ASDIRECTED PRN PRN Reason: Keep Vein Open Sodium Chloride (Saline Flush) 2.5 ml FLUSH ASDIRECTED PRN PRN Reason: Keep Vein Open Sodium Chloride (Normal Saline) 10 ml IV ASDIRECTED PRN PRN Reason: IV Use Sterile Water (Sterile Water For Irrigation) 1,000 ml IRR ASDIRECTED PRN PRN Reason: delivery Discontinued Medications Bupivacaine HCl (Sensorcaine-Mpf 0.25%) Confirm Administered Dose 10 ml .ROUTE .STK-MED ONE Stop: 12/12/18 23:56 Last Admin: 12/13/18 13:04 Dose: Not Given Bupivacaine HCl (Sensorcaine-Mpf 0.5%) Confirm Administered Dose 10 ml .ROUTE .STK-MED ONE Stop: 12/13/18 05:43 Last Admin: 12/13/18 13:05 Dose: Not Given Cefazolin Sodium/Dextrose (Ancef) Confirm Administered Dose 2 gm IV .STK-MED ONE Stop: 12/13/18 06:05 Last Admin: 12/13/18 13:05 Dose: Not Given Diphenhydramine HCl (Benadryl) 25 mg IVPUSH Q4H PRN PRN Reason: Itching Stop: 12/14/18 07:02 Ephedrine Sulfate (Ephedrine Sulfate) Confirm Administered Dose 50 mg .ROUTE .STK-MED ONE Stop: 12/13/18 01:25 Last Admin: 12/13/18 13:05 Dose: Not Given Fentanyl (Sublimaze) Confirm Administered Dose 100 mcg .ROUTE .STK-MED ONE Stop: 12/12/18 23:56 Last Admin: 12/13/18 13:04 Dose: Not Given Fentanyl/Bupivacaine HCl (Hynktevs-Hxaqo-Zi 2 Mcg/Ml-0.125%) Confirm Administered Dose 100 mls @ as directed .ROUTE .STK-MED ONE Stop: 12/12/18 23:56 Last Admin: 12/13/18 13:04 Dose: Not Given Ketorolac Tromethamine (Toradol) 30 mg IVPUSH Q6H AYLEEN Stop: 12/14/18 07:31 Last Admin: 12/14/18 08:11 Dose: 30 mg Ketorolac Tromethamine (Toradol) Confirm Administered Dose 30 mg .ROUTE .STK- MED ONE Stop: 12/13/18 19:32 Last Admin: 12/14/18 04:06 Dose: Not Given Lidocaine (Xylocaine-Mpf 2%) Confirm Administered Dose 5 ml .ROUTE .STK-MED ONE Stop: 12/13/18 05:44 Last Admin: 12/13/18 13:05 Dose: Not Given Lidocaine (Xylocaine-Mpf 2%) Confirm Administered Dose 5 ml .ROUTE .STK-MED ONE Stop: 12/13/18 06:11 Last Admin: 12/13/18 13:05 Dose: Not Given Lidocaine/Epinephrine (Lidocaine 1.5%-Epi 1:200,000) Confirm Administered Dose 5 ml IJ .STK-MED ONE Stop: 12/12/18 23:56 Last Admin: 12/13/18 13:04 Dose: Not Given Naloxone HCl (Narcan) 0.1 mg IVPUSH ONETIME PRN PRN Reason: Respiratory Depression Stop: 12/14/18 07:02 - Problem List & Annotations (1) Arrest of descent, delivered, current hospitalization SNOMED Code(s): 15028091 Code(s): O62.1 - SECONDARY UTERINE INERTIA Status: Acute Current Visit: Yes - My Orders Last 24 Hours: My Active Orders 12/15/18 09:03 Ready for Discharge [RC] PER UNIT ROUTINE - Plan Plan:: Patient seen and examined--doing well overall. Will send in rx for iron. Discharge to home today. Follow up at [facility] 2 and 6 weeks. Discharge instructions reviewed. Infection and bleeding warnings reviewed.
[2018-12-15] MEDS: Docusate Sodium 100 MG Cap PO SCH (09:07)
[2018-12-15 11:46] VITALS: BP 108/75
== END 2018-12-15 14:05 | disposition home or self-care (01) | DRG 787 ==
LOC: MW.OBCHECK 07:20 → MW.OB 07:21 → MW.OBCHECK 07:40 → MW.OB 07:40 → OBSVTOIN 12-13 06:30 → MW.OB 12-13 12:02
PROVIDERS: ADMIT Obstetrics & Gynecology; ATTEND Obstetrics & Gynecology
PROC: 10D00Z1 Extraction of Products of Conception, Low, Open Approach (ICD-10-PCS; principal; 2018-12-13)
PROC: 3E0P7VZ Introduction of Hormone into Female Reproductive, Via Natural or Artificial Opening (ICD-10-PCS; 2018-12-13)
PROC: 4A1HXCZ Monitoring of Products of Conception, Cardiac Rate, External Approach (ICD-10-PCS; 2018-12-13)
DX: O62.1 Secondary uterine inertia (principal); O98.413 Viral hepatitis complicating pregnancy, third trimester; O40.3XX0 Polyhydramnios, third trimester, not applicable or unspecified; B18.2 Chronic viral hepatitis C; O99.013 Anemia complicating pregnancy, third trimester; D64.9 Anemia, unspecified; O09.513 Supervision of elderly primigravida, third trimester; Z37.0 Single live birth; Z3A.39 39 weeks gestation of pregnancy
CPT/HCPCS: 36415; 51702; 59025; 82803; 85014; 85018; 85027; 86850; 86900; 86901; A9270-GY; J0595; J1885; J2590; J7120